=== PATIENT | female | born 1945 | race Caucasian/White ===

== ENCOUNTER → 2018-02-28 | Outpatient (CLI) | payer MEDICARE ==
--- NOTE | 2018-02-28 11:55 | MM ---
Reason for exam: additional evaluation requested from prior study. Last mammogram was performed 2 years ago. History: Patient is postmenopausal and is nulliparous. Physical Findings: Nurse did not find any significant physical abnormalities on exam. MG 3D Diag Mammo W/Cad FARIHA Bilateral CC and MLO view(s) were taken. Prior study comparison: February 23, 2016, left breast MG 3d work up w/cad LT. February 12, 2016, bilateral MG 3d screening mammo w/cad. December 12, 2014, bilateral MG screening mammo w CAD. There are scattered fibroglandular densities. Finding: There is an equal density (isodense), indistinct oval mass located 8 cm from the nipple in the lower inner quadrant, posterior position of the left breast. New finding since February 12, 2016 and February 23, 2016. These results were verbally communicated with the patient and result sheet given to the patient on 02/28/18. ASSESSMENT: Incomplete: need additional imaging evaluation, BI-RAD 0 RECOMMENDATION: Ultrasound of the left breast.
--- NOTE | 2018-02-28 11:56 | USB ---
Reason for exam: additional evaluation requested from abnormal screening. History: Patient is postmenopausal and is nulliparous. US Breast Limited LT Left limited breast ultrasound including focal area of concern, retroareolar and axilla demonstrates no cystic or solid lesion seen. These results were verbally communicated with the patient and result sheet given to the patient on 02/28/18. ASSESSMENT: Negative, BI-RAD 1 RECOMMENDATION: Follow-up diagnostic mammogram of the left breast in 6 months.
== END | disposition home or self-care (01) ==
LOC: RADMAMWWP 10:00
PROVIDERS: ATTEND Family Medicine
DX: R92.8 Other abnormal and inconclusive findings on diagnostic imaging of breast (principal)
CPT/HCPCS: 77066; 76642; G0279; 77062

== ENCOUNTER → 2021-01-08 | Outpatient (CLI) | payer MEDICARE ==
--- NOTE | 2021-01-08 16:18 | CT ---
EXAMINATION TYPE: CT abdomen wo con DATE OF EXAM: 01/08/2021 COMPARISON: None INDICATION: Mid abdominal pain and diarrhea x4 weeks. DLP: 211 mGycm, Automated exposure control for dose reduction was used. CONTRAST: 0 mL of Isovue 300. Study performed without Oral Contrast TECHNIQUE: Axial images were obtained from above the diaphragm to the pubic rami in the axial plane a t 5 mm thick sections. Reconstructed images are reviewed on the computer in the coronal plane. FINDINGS: Limited CT sections are obtained the lung bases. The lung bases are clear. There is a moderate-size d hiatal hernia present. CT ABDOMEN: Liver: Scattered small rounded hypodensities are present likely related to hepatic cysts. The largest in the posterior right lobe liver measures 2 cm and 10 Hounsfield units. Spleen: Normal Pancreas: Normal Adrenal glands: The adrenal glands are normal. Gallbladder: Surgically absent Kidneys: No masses are evident. No hydronephrosis is present. No cysts are present. No renal stone s are identified. Aorta: Normal Inferior vena cava: Normal. Loops of bowel as visualized are unremarkable. Study is without oral contrast causing some limitation of bowel evaluation. IMPRESSIONS: 1. Moderate size hiatal hernia. 2. Hepatic cysts. 3. No suspicious bowel abnormality.
== END | disposition home or self-care (01) ==
LOC: RADCTMAIN 15:36
PROVIDERS: ATTEND Family Medicine
DX: K44.9 Diaphragmatic hernia without obstruction or gangrene (principal); K76.89 Other specified diseases of liver
CPT/HCPCS: 74150

== ENCOUNTER 2021-01-12 22:35 | Emergency (ER) | payer MEDICARE ==
[2021-01-12] MEDS ORDERED: MORPHINE SULFATE 4 MG/ML SYRINGE IVP STA (23:17)
[2021-01-12] MEDS ORDERED: ONDANSETRON 4 MG/2 ML VIAL IVP STA (23:17)
[2021-01-13] MEDS ORDERED: LIDOCAINE 2%-EPI 1:100,000 20 ML VIAL SQ STA (00:16)
[2021-01-13] MEDS ORDERED: LORazepam 2 MG/ML INJ IV STA (00:16)
--- NOTE | 2021-01-13 00:17 | XR ---
EXAMINATION TYPE: XR wrist complete LT DATE OF EXAM: 01/13/2021 COMPARISON: NONE HISTORY: Wrist deformity TECHNIQUE: 3 views FINDINGS: There is transverse fracture of the distal radial metaphysis. There is anterior mild angula tion at the fracture site. There is no significant displacement. There is no dislocation. There is no ndisplaced fracture ulnar styloid process. Carpal bones appear intact. IMPRESSION: Fractures of the distal radius and ulna. Anterior angulation at the radius fracture site.
[2021-01-13] MEDS ORDERED: ACET/COD 300 MG/30 MG STARTER PACK 6 TAB BTL PO STA (01:02)
--- NOTE | 2021-01-13 01:02 | ED ---
Upper Extremity HPI - General Source: patient Mode of arrival: ambulatory Limitations: no limitations <Denisse Enrique - Last Filed: 01/13/21 02:54> <Jayme Pruitt - Last Filed: 01/13/21 06:05> - General Chief Complaint: Extremity Injury, Upper Stated Complaint: Fall, arm injury Time Seen by Provider: 01/12/21 23:09 - History of Present Illness Initial Comments: 75 year-old female patient presents for evaluation of left wrist pain after fall on outstretched arm. Patient states she was kneeling on her bed to turn the fan down when she lost balance and fell forward. States that she injured her wrist. States that it appeared to be out of place. Denies any numbness or tingling to the hand. Denies previous injury to this wrist. Denies taking anything for pain. Denies hitting her head or losing consciousness. Denies any neck or back pain. Denies any other injuries. Denies use of anticoagulant or antiplatelet medications. (Denisse Enrique) - Related Data Allergies Allergy/AdvReac Type Severity Reaction Status Date / Time No Known Allergies Allergy Verified 01/12/21 22:57 Review of Systems ROS Other: All systems not noted in ROS Statement are negative. <Denisse Enrique - Last Filed: 01/13/21 02:54> ROS Other: All systems not noted in ROS Statement are negative. <Jayme Pruitt - Last Filed: 01/13/21 06:05> ROS Statement: Those systems with pertinent positive or pertinent negative responses have been documented in the HPI. Past Medical History Past Medical History: Asthma History of Any Multi-Drug Resistant Organisms: None Reported Past Surgical History: Hernia Repair, Hysterectomy Past Psychological History: Anxiety, Depression Smoking Status: Never smoker Past Alcohol Use History: None Reported Past Drug Use History: None Reported <Denisse Enrique - Last Filed: 01/13/21 02:54> General Exam Limitations: no limitations General appearance: alert, in no apparent distress, other (This is a well- developed, well-nourished elderly female patient in no acute distress. Vital signs upon presentation are temperature 98.4F, pulse 85, respirations 17, blood pressure 129/83, pulse ox 98% on room air.) Neck exam: Present: normal inspection, full ROM, other (Nontender, no step-off, no deformity to firm midline palpation of the posterior cervical spine. Full range of motion without pain or limitation.). Absent: tenderness, meningismus, lymphadenopathy Respiratory exam: Present: normal lung sounds bilaterally. Absent: respiratory distress, wheezes, rales, rhonchi, stridor Cardiovascular Exam: Present: regular rate, normal rhythm, normal heart sounds. Absent: systolic murmur, diastolic murmur, rubs, gallop, clicks Extremities exam: Present: tenderness (Distal radial and ulnar tenderness), normal capillary refill, other (There is obvious deformity to the left wrist. Skin to the hand is pink, warm, dry. Cap refill is less than 3 seconds. Radial pulse is 2+.). Absent: normal inspection, full ROM (Diminished range of motion to the left wrist), pedal edema, joint swelling, calf tenderness Neurological exam: Present: alert, oriented X3, CN II-XII intact Psychiatric exam: Present: normal affect, normal mood Skin exam: Present: warm, dry, intact, normal color. Absent: rash <Denisse Enrique - Last Filed: 01/13/21 02:54> Course <Jayme Pruitt - Last Filed: 01/13/21 06:05> Vital Signs 01/12/21 22:48 Temperature 98.4 F Pulse Rate 85 Respiratory 17 Rate Blood Pressure 129/83 O2 Sat by Pulse 98 Oximetry - Reevaluation(s) Reevaluation #1: 01/13/21 06:05 Medical record is reviewed (Jayme Pruitt) Reevaluation #2: 01/13/21 06:05 Patient is awake alert and feels well (Jayme Pruitt) Procedures - Orthopedic Fracture Reduction Fracture #1 Consent Obtained: verbal consent Side: left Fracture Reduction Location: radius, ulna Analgesia: hematoma block Technique: direct manipulation Post Reduction X-rays Demonstrate: acceptable reduction Post-Reduction Neuro Exam: intact Post-Reduction Vascular Exam: intact Splint Applied: Yes Patient Tolerated Procedure: well, no complications - Orthopedic Splinting/Casting Injury #1 Side: left Upper Extremity Injury Location: wrist Upper Extremity Immobilizer: volar splint, Anthony wrap, synthetic pre-padded splint <Denisse Enrique - Last Filed: 01/13/21 02:54> - Orthopedic Fracture Reduction Fracture #1 Additional Comments: Hematoma block and reduction performed by Dr. Pruitt. (Denisse Enrique) - Orthopedic Splinting/Casting Injury #1 Additional Comments: Splint applied by my attending Dr. Pruitt. (Denisse Enrique) Medical Decision Making <Denisse Enrique - Last Filed: 01/13/21 02:54> <Jayme Pruitt - Last Filed: 01/13/21 06:05> - Medical Decision Making 75 year-old female patient presents with deformity of the left wrist after a fall. Physical exam shows soft tissue swelling and deformity of the left wrist. XRay showed distal radius and ulna fracture with displacement of the radius. IV was started and patient was given IV pain medication. My attending Dr. Pruitt was in to perform hematoma block and reduction of the fracture. He applied volar splint. Repeat xray does show acceptable reduction of the fracture. Patient is quite drowsy after the procedure, we will monitor in the emergency department until she is more alert. She will be discharged to follow up with the career specialist as soon as possible. Return parameters discussed in detail. She verbalizes understanding. (Denisse Enrique) 75 female DF for evaluation of fall fall with left collies fracture, fractures reduced here in the ER by myself patient can be discharged home (Jayme Pruitt) Disposition Is patient prescribed a controlled substance at d/c from ED?: No Time of Disposition: 01:51 <Denisse Enrique - Last Filed: 01/13/21 02:54> <Jayme Pruitt - Last Filed: 01/13/21 06:05> Clinical Impression: Fracture of distal end of left radius and ulna Disposition: HOME SELF-CARE Condition: Good Instructions (If sedation given, give patient instructions): Wrist Fracture in Adults (ED), Splint Care (ED) Additional Instructions: Follow-up with career specialist for further evaluation as soon as possible. Call in the morning for an appointment, the number has been provided for you. Take medication as directed for pain control. Return to the emergency department for any new, worsening, or concerning symptoms. Referrals: Octavio Duarte MD [Primary Care Provider] - 1-2 days Bebeto Darden DO [Doctor of Osteopathic Medicine] - 1-2 days
--- NOTE | 2021-01-13 01:50 | XR ---
EXAMINATION TYPE: XR wrist limited LT DATE OF EXAM: 01/13/2021 COMPARISON: Yesterday HISTORY: Post reduction TECHNIQUE: 2 views FINDINGS: 2 views through the cast show the transverse fracture of the distal radius. There is nondis placed ulnar styloid process fracture. Distal radius fragment is 3 mm posteriorly displaced. There is fairly normal alignment. IMPRESSION: Satisfactory reduction of the radius fracture with improvement in the angulation compared to initial exam.
[2021-01-13 06:30] VITALS: RESP 18
[2021-01-13 06:56] VITALS: BP 132/74; PULSE 78; TEMP 98.2
== END 2021-01-13 06:53 | disposition home or self-care (01) ==
LOC: EC 22:35
DX: S52.592A Other fractures of lower end of left radius, initial encounter for closed fracture (principal); S52.692A Other fracture of lower end of left ulna, initial encounter for closed fracture; J45.909 Unspecified asthma, uncomplicated; W06.XXXA Fall from bed, initial encounter
CPT/HCPCS: 73100; 73110; 25605; 96374; 96375 ×2; 99284; J2060; J2270; J2405

== ENCOUNTER → 2021-04-23 | Outpatient (CLI) | payer MEDICARE ==
--- NOTE | 2021-04-23 11:48 | BD ---
EXAMINATION TYPE: Axial Bone Density DATE OF EXAM: 04/23/2021 COMPARISON: 11.18.2009 CLINICAL HISTORY: 76 YR OLD FEMALE.....ICD-10 CODE: S52.532D COLLIES FX LT RADIUS Height: 60.2 Weight: 125 FRAX RISK QUESTIONS: Glucocorticoids (More than 3mos): YES (Ex: prednisone, prednisolone, methylprednisolone, dexamethasone, and hydrocortisone). History of Fracture in Adulthood: YES Secondary Osteoporosis: YES 3. Menopause before 45: YES RISK FACTORS HISTORY OF: History of Wrist Fracture: LT WRIST, DECEMBER 2020 Postmenopausal woman: YES, MID 40s Take estrogen and/or progesterone medications: YES, FOR ABOUT 4 YRS, NONE NOW Lost more than 2 inches in height since high school: YES Frequent falls: ELDERLY Hyperparathyroidism: NO Adrenal Insufficiency: NO MEDICATIONS: Prednisone or other steroids: BERIO, FOR ASTHMA How Lon-6 YRS Additional Medications: CELEXA, ZOLOFT, REFLUX MEDS, VIT D3 AND CALCIUM Additional History: ARTHRITIS, REFLUX, DEPRESSION, EXAM MEASUREMENTS: Bone mineral densitometry was performed using the [employer] System. Bone mineral density as measured about the Lumbar spine is: ----- L1-L4(G/cm2): 1.227 T Score Values are as follows: ----- L1: -0.6 ----- L2: -0.1 ----- L3: 0.3 ----- L4: 1.4 ----- L1-L4: 0.4 Bone mineral density has: Increased 4.5% since study of: 11.18.2009 Bone mineral density about the R hip (g/cm2): 0.674 Bone mineral density about the L hip (g/cm2): 0.679 T Score values are as follows: -----R Neck: -3.0 -----L Neck: -3.0 -----R Total: -2.7 -----L Total: -2.6 Bone mineral density has: Decreased -10.7% since study of: 11.18.2009 FRAX%s: THERE IS A 46.2% CHANCE FOR A MAJOR OSTEOPOROTIC FX AND A 21.7% FOR HIP......PROBABILITY F OR FX IN 10 YRS TIME IMPRESSION: Osteoporosis lumbar spine NOTE: T-SCORE=SD OF THE YOUNG ADULT MEAN.
== END | disposition home or self-care (01) ==
LOC: RADBDWWP 10:24
PROVIDERS: ATTEND Orthopaedic Surgery
DX: M81.0 Age-related osteoporosis without current pathological fracture (principal); Z78.0 Asymptomatic menopausal state
CPT/HCPCS: 77080

== ENCOUNTER → 2023-06-14 | Outpatient (CLI) | payer MEDICARE ==
--- NOTE | 2023-06-14 17:43 | BD ---
EXAMINATION TYPE: Axial Bone Density DATE OF EXAM: 06/14/2023 CLINICAL HISTORY: 78 years old Female. ICD-10 CODE: M81.0 AGE-RELATED OSTEOPOROSIS W/O CURRENT PATHO LO Height: 61 Weight: 112.6 FRAX RISK QUESTIONS: Alcohol (3 or more units per day): no Family History (Parent hip fracture): no Glucocorticoids (More than 3mos): yes (Ex: prednisone, prednisolone, methylprednisolone, dexamethasone, and hydrocortisone). History of Fracture in Adulthood: yes Secondary Osteoporosis: 1. Type 1 Diabetes: no 2. Hyperthyroidism: no 3. Menopause before 45: no 4. Malnutrition: no 5. Chronic liver disease: no Rheumatoid Arthritis: no Current Tobacco Use: no RISK FACTORS HISTORY OF: History of Wrist Fracture: left wrist When: 2 years ago Surgery to Spine/Hip(right/left)/Wrist (right/left): no Additional History: EXAM MEASUREMENTS: Bone mineral densitometry was performed using the [employer] System. Bone mineral density as measured about the Lumbar spine is: ----- L1-L4(G/cm2): 1.215 T Score Values are as follows: ----- L1: -0.8 ----- L2: 0.1 ----- L3: 0.3 ----- L4: 1.0 ----- L1-L4: 0.3 Z Score Values are as follows: ----- L1: 1.5 ----- L2: 2.4 ----- L3: 2.6 ----- L4: 3.3 ----- L1-L4: 2.6 Bone mineral density has: decreased -1.0 % since study of: 04.23.2021 Bone mineral density about the R hip (g/cm2): 0.652 Bone mineral density about the L hip (g/cm2): 0.666 T Score values are as follows: -----R Neck: -3.0 -----L Neck: -3.1 -----R Total: -2.8 -----L Total: -2.7 Z Score values are as follows: -----R Neck: -0.5 -----L Neck: -0.7 -----R Total: -0.5 -----L Total: -0.4 Bone mineral density has: decreased -2.7 % since study of: 04.23.2021 FRAX%s: The graph provided illustrates a 43.6% chance for a major osteoporotic fx and a 21.4% chance for the hips probability for fx in 10 years time. IMPRESSION: Osteoporosis (T Score less than -2.5). There is increased fracture risk and therapy is usually indicated based on age. Re-Screen 1-2 years. NOTE: T-SCORE=SD OF THE YOUNG ADULT MEAN.
== END | disposition home or self-care (01) ==
LOC: RADBDWWP 14:50
PROVIDERS: ATTEND Family Medicine
DX: M81.0 Age-related osteoporosis without current pathological fracture (principal)
CPT/HCPCS: 77080

== ENCOUNTER → 2023-07-12 | Outpatient (CLI) | payer MEDICARE ==
--- NOTE | 2023-07-13 08:13 | XR ---
EXAMINATION TYPE: XR chest 2V DATE OF EXAM: 07/12/2023 COMPARISON: 07/12/2019 TECHNIQUE: PA and lateral views submitted. HISTORY: Chest pain FINDINGS: The lungs are clear and there is no pneumothorax, pleural effusion, or focal pneumonia. Heart size normal and no overt failure. Osseous structures demonstrate hypertrophic and degenerative changes of the spine. Hyperinflation compatible COPD. Wedge deformity lower thoracic spine compatible with previ ous fracture. Ectasia of the aorta. Pleural-based density along the left lateral chest wall. IMPRESSION: 1. No acute process. Correlate for COPD. 2. Pleural-based density along the left lateral chest wall recommend CT scan.
== END | disposition home or self-care (01) ==
LOC: RADXRMAIN 17:19
PROVIDERS: ATTEND Family Medicine
DX: J94.8 Other specified pleural conditions (principal); R07.9 Chest pain, unspecified
CPT/HCPCS: 71046

== ENCOUNTER → 2023-07-26 | Outpatient (CLI) | payer MEDICARE ==
--- NOTE | 2023-07-26 10:28 | CT ---
EXAMINATION TYPE: CT chest wo con CT DLP: 273 mGycm, Automated exposure control for dose reduction was used. DATE OF EXAM: 07/26/2023 10:14 AM COMPARISON: . Chest radiograph from 07/12/2023 CLINICAL INDICATION:Female, 78 years old with history of R91.8 previous abnormal exam; PHH, Previous abnormal exam TECHNIQUE: Multiple axial images were obtained through the chest without IV contrast. Lack of IV or o ral contrast limits evaluation of solid and hollow organ viscera. . Coronal and sagittal reformats re viewed. FINDINGS: LUNGS/ PLEURA: No pleural effusion or pneumothorax. No focal consolidation. Linear scarring identifie d within the left lung base likely corresponds to chest radiograph findings. Left lower lobe 2 mm pul monary nodule (series 4, image 33). 5 mm nodule along the right minor fissure which may represent int rafissural lymph node (series 4, image 35). AIRWAY: Patent and unremarkable.. HEART: Size within normal limits. . MEDIASTINUM: No gross evidence of adenopathy. VASCULATURE: Ascending aortic aneurysm measuring up to 4.0 cm. Aortic root measures up to 3.0 cm. Ab errant right subclavian artery. MUSCULOSKELETAL: No acute osseous abnormalities SOFT TISSUES/LYMPH NODES: Unremarkable. LOWER NECK: No significant findings. UPPER ABDOMEN: Surgical changes of the stomach at the GE junction but similar to prior. Postcholecyst ectomy changes. Scattered hepatic cysts with largest seen measuring 2.4 cm. IMPRESSION: 1. No acute thoracic process. 2. Left lower lobe 2 mm pulmonary nodule with a 5 mm nodule along the right major fissure which may r epresent an intrafissural lymph node. According to Fleischner criteria, a low risk patient no follow- up is required, in a high-risk patient, consider CT in 12 months. 3. Ascending aortic aneurysm measuring up to 4.0 cm. 4. Aberrant right subclavian artery.
== END | disposition home or self-care (01) ==
LOC: RADCTMAIN 09:49
PROVIDERS: ATTEND Family Medicine
DX: I71.21 Aneurysm of the ascending aorta, without rupture (principal); Q27.8 Other specified congenital malformations of peripheral vascular system; R91.8 Other nonspecific abnormal finding of lung field; R91.1 Solitary pulmonary nodule
CPT/HCPCS: 71250

== ENCOUNTER 2023-09-10 18:11 | Emergency (ER) | payer MEDICARE ==
[2023-09-10 18:26] VITALS: TEMP 98
[2023-09-10] MEDS: MORPHINE SULFATE 4 MG/ML SYRINGE IVP STA (18:28)
--- NOTE | 2023-09-10 18:31 | ED ---
Fall HPI - General Chief Complaint: Fall Stated Complaint: Fall, arm injury Time Seen by Provider: 09/10/23 18:25 Source: patient, EMS, RN notes reviewed Mode of arrival: EMS Limitations: no limitations - History of Present Illness Initial Comments: 78-year-old female presents emergency department via EMS due to fall. Patient states that she was at home on a stepstool and she fell onto her left side and arm which prompted her to call EMS. At time of fall patient denies any dizziness, lightheadedness, palpitations, chest pain. She denies hitting her head or loss of consciousness after fall. Denies any numbness or tingling to her left arm or extremity, and states she is still able to move her fingers, with most of her pain being in her shoulder and humerus. She denies history of heart attack or stroke, she is not on any blood thinners. - Related Data Allergies Allergy/AdvReac Type Severity Reaction Status Date / Time No Known Allergies Allergy Verified 09/10/23 18:23 Review of Systems ROS Statement: Those systems with pertinent positive or pertinent negative responses have been documented in the HPI. ROS Other: All systems not noted in ROS Statement are negative. Past Medical History Past Medical History: Asthma History of Any Multi-Drug Resistant Organisms: None Reported Past Surgical History: Hernia Repair, Hysterectomy Past Psychological History: Anxiety, Depression Smoking Status: Never smoker Past Alcohol Use History: None Reported Past Drug Use History: None Reported General Exam Limitations: no limitations General appearance: anxious, in distress Head exam: Present: atraumatic, normocephalic, normal inspection Eye exam: Present: normal appearance, PERRL, EOMI. Absent: scleral icterus, conjunctival injection, periorbital swelling ENT exam: Present: normal exam, mucous membranes moist Neck exam: Present: normal inspection. Absent: tenderness, meningismus, lymphadenopathy Respiratory exam: Present: normal lung sounds bilaterally. Absent: respiratory distress, wheezes, rales, rhonchi, stridor Cardiovascular Exam: Present: regular rate, normal rhythm, normal heart sounds. Absent: systolic murmur, diastolic murmur, rubs, gallop, clicks GI/Abdominal exam: Present: soft, normal bowel sounds. Absent: distended, tenderness, guarding, rebound, rigid Left Shoulder Exam: Present: tenderness (diffuse). Absent: full ROM (patient unable to abduct or adduct shoulder), swelling, abrasion, laceration Upper Arm exam: Present: tenderness (humeral tenderness). Absent: full ROM (unable to lift left arm), abrasion, laceration Elbow exam: Present: normal inspection. Absent: full ROM (limited flexion and extension) Neuro motor exam: Present: wrist extension intact, thumb IP flexion intact Vascular: Present: normal capillary refill. Absent: vascular compromise, Pallo Back exam: Present: normal inspection Neurological exam: Present: alert, oriented X3, CN II-XII intact Psychiatric exam: Present: normal affect, normal mood Skin exam: Present: warm, dry, intact, normal color. Absent: rash Course Vital Signs 09/10/23 18:13 Temperature 98 F Pulse Rate 78 Respiratory 18 Rate Blood Pressure 159/93 O2 Sat by Pulse 98 Oximetry Procedures - Orthopedic Splinting/Casting Injury #1 Side: left Upper Extremity Injury Location: shoulder Upper Extremity Immobilizer: sling/shoulder immobilizer Medical Decision Making - Medical Decision Making Was pt. sent in by a medical professional or institution (, PA, CHANGE MANAGEMENT MANAGER, urgent care, hospital, or usp...) When possible be specific @ -No Did you speak to anyone other than the patient for history (EMS, parent, family, police, friend...)? What history was obtained from this source @ -No Did you review nursing and triage notes (agree or disagree)? Why? @ -I reviewed and agree with nursing and triage notes Were old charts reviewed (outside hosp., previous admission, EMS record, old EKG, old radiological studies, urgent care reports/EKG's, usp records)? Report findings @ -No old charts were reviewed Differential Diagnosis (chest pain, altered mental status, abdominal pain women, abdominal pain men, vaginal bleeding, weakness, fever, dyspnea, syncope, headache, dizziness, GI bleed, back pain, seizure, CVA, palpatations, mental health, musculoskeletal)? @ -Differential Musculoskeletal Muscular strain, contusion, ligament sprain, fracture, arthritis, septic arthritis, bursitis, cellulitis, muscle spasm, nerve compression, DVT, arterial occlusion, herpes zoster, electrolyte abnormality, tumor.... This is not meant to be in all inclusive list EKG interpreted by me (3pts min.). @ -As above X-rays interpreted by me (1pt min.). @ -xrays of left arm no acute fracture of the left proximal humerus with mild di splacement posterior angulation, x-ray no acute cardiopulmonary process. CT interpreted by me (1pt min.). @ -None done U/S interpreted by me (1pt. min.). @ -None done What testing was considered but not performed or refused? (CT, X-rays, U/S, labs)? Why? @ -None What meds were considered but not given or refused? Why? @ -None Did you discuss the management of the patient with other professionals (professionals i.e. , PA, CHANGE MANAGEMENT MANAGER, lab, RT, psych nurse, social psychologist, septic tank servicer, teacher, procurement officer, correctional case manager)? Give summary @ -No Was smoking cessation discussed for >3mins.? @ -No Was critical care preformed (if so, how long)? @ -No Were there social determinants of health that impacted care today? How? (Homelessness, low income, unemployed, alcoholism, drug addiction, transport ation, low edu. Level, literacy, decrease access to med. care, nursing home, rehab)? @ -No Was there de-escalation of care discussed even if they declined (Discuss DNR or withdrawal of care, Hospice)? DNR status @ -No What co-morbidities impacted this encounter? (DM, HTN, Smoking, COPD, CAD, Cancer, CVA, ARF, Chemo, Hep., AIDS, mental health diagnosis, sleep apnea, morbid obesity)? @ -None Was patient admitted / discharged? Hospital course, mention meds given and route, prescriptions, significant lab abnormalities, going to OR and other pertinent info. @ -78-year-old female presents emergency department chief complaint of fall. Given IV pain medication upon arrival. xrays of left arm no acute fracture of the left proximal humerus with mild displacement posterior angulation, x-ray no acute cardiopulmonary process. Stable for discharge home. Follow-up with orthopedics on Tuesday for further evaluation and treatment. Patient placed in sling and given pain medication to take home. Undiagnosed new problem with uncertain prognosis? @ -No Drug Therapy requiring intensive monitoring for toxicity (Heparin, Nitro, Insulin, Cardizem)? @ -No Were any procedures done? @ -No Diagnosis/symptom? @ -Humeral fracture Acute, or Chronic, or Acute on Chronic? @ -acute Uncomplicated (without systemic symptoms) or Complicated (systemic symptoms)? @ -Uncomplicated Side effects of treatment? @ -No Exacerbation, Progression, or Severe Exacerbation? @ -No Poses a threat to life or bodily function? How? (Chest pain, [place], [place], pneumonia, PE, COPD, DKA, ARF, appy, cholecystitis, CVA, Diverticulitis, Homicidal, Suicidal, threat to staff... and all critical care pts) @ -No Disposition Clinical Impression: Fall, Fracture of humerus Narrative: Please return to the Emergency Department if symptoms worsen or any other concerns. Patient given starter pack of pain medication for at home. Patient instructed to call orthopedic office on Tuesday for further evaluation and treatment. Disposition: HOME SELF-CARE Condition: Good Is patient prescribed a controlled substance at d/c from ED?: No Referrals: Octavio Duarte MD [Primary Care Provider] - 1-2 days Carmen Hall DO [Doctor of Osteopathic Medicine] - 1-2 days Time of Disposition: 19:47
--- NOTE | 2023-09-10 19:20 | XR ---
EXAMINATION TYPE: XR chest 1V DATE OF EXAM: 09/10/2023 6:57 PM CLINICAL INDICATION:Female, 78 years old with history of fall, pain; [facility] COMPARISON: Chest radiographs from 07/12/2023 TECHNIQUE: XR chest 1V Frontal view of the chest. FINDINGS: Lungs/Pleura: There is no evidence of pleural effusion, focal consolidation, or pneumothorax. Pulmonary vascularity: Unremarkable. Heart/mediastinum: Cardiomediastinal silhouette is unremarkable. Musculoskeletal: No acute osseous pathology. Other findings: None IMPRESSION: 1. No acute cardiopulmonary disease/process. 2. Acute left proximal humerus fracture as described on same day dedicated radiographs.
--- NOTE | 2023-09-10 19:20 | XR ---
EXAMINATION TYPE: XR forearm LT, XR humerus LT, XR shoulder complete LT DATE OF EXAM: 09/10/2023 6:57 PM CLINICAL INDICATION:Female, 78 years old with history of fall, pain; [facility] COMPARISON: Chest radiograph same day. TECHNIQUE: XR forearm LT, XR humerus LT, XR shoulder complete LT; forearm was examined in AP and late ral projections. The left humerus was evaluated in frontal and lateral views. The left shoulder was e valuated in frontal lateral and scapular Y. FINDINGS/IMPRESSION: 1. Acute fracture of the left proximal humerus with mild displacement and posterior angulation. 2. Remote injury to the distal radius likely sequela prior fracture seen on 01/13/2021 no new fractur es identified. There is degeneration changes and deformity to the radius.
[2023-09-10] MEDS: MORPHINE SULFATE 2 MG/ML SYRINGE IVP ONE (20:01)
[2023-09-10] MEDS: ACET/COD 300 MG/30 MG STARTER PACK 6 TAB BTL PO STA (20:01)
[2023-09-10 20:32] VITALS: BP 150/85; PULSE 81; RESP 16
== END 2023-09-10 20:08 | disposition home or self-care (01) ==
LOC: EC 18:11
DX: S42.202A Unspecified fracture of upper end of left humerus, initial encounter for closed fracture (principal); J45.909 Unspecified asthma, uncomplicated; Z86.59 Personal history of other mental and behavioral disorders; W18.30XA Fall on same level, unspecified, initial encounter
CPT/HCPCS: 73030; 73060; 73090; 71045; 99284; 96374; 96376; J2270 ×2

== ENCOUNTER 2023-09-15 15:49 | Observation (INO) | payer MEDICARE ==
[2023-09-15 17:05] LABS: Basophils % (A) 0 %; Eosinophils % (A) 0 %; HCT 42.8 % (34.0-46.0); HGB 13.7 gm/dL (11.4-16.0); Lymphocytes % (A) 10 %; MCHC 32.1 g/dL (31.0-37.0); MCV 93.4 fL (80.0-100.0); Mean Platelet Volume 7.8; Monocytes # (A) 0.5 k/uL (0-1.0); Monocytes % (A) 5 %; Neutrophils # (A) 8.2 k/uL (1.3-7.7); Neutrophils % (A) 83 %; Platelet Count 362 k/uL (150-450); RBC 4.58 m/uL (3.80-5.40); RDW 13.1 % (11.5-15.5); WBC 9.8 k/uL (3.8-10.6)
[2023-09-15 17:13] LABS: INR 0.9 (<1.2); Partial Thromboplastin Time 23.7 sec (22.0-30.0); Prothrombin Time 9.8 sec (10.0-12.5)
[2023-09-15 17:14] LABS: ALT 26 U/L (4-34); African American GFR (CKD) >90 (>60 ml/min/1.73 sqM); Anion Gap 3 mmol/L; Blood Urea Nitrogen 12 mg/dL (7-17); Calcium 9.2 mg/dL (8.4-10.2); Carbon Dioxide 30 mmol/L (22-30); Chloride 105 mmol/L (98-107); Creatine Kinase 54 U/L (30-135); Glucose 102 mg/dL (74-99); Non-African American GFR(CKD) 87 (>60 ml/min/1.73 sqM); Sodium 138 mmol/L (137-145)
[2023-09-15 17:15] LABS: AST 45 U/L (14-36); Albumin 3.7 g/dL (3.5-5.0); Alkaline Phosphatase 91 U/L (38-126); Potassium 4.7 mmol/L (3.5-5.1); Total Protein 6.3 g/dL (6.3-8.2)
[2023-09-15] MEDS: KETOROLAC 15 MG/ML 1 ML VIAL IVP STA (17:21)
--- NOTE | 2023-09-15 17:53 | ED ---
General Adult HPI - General Chief complaint: Neuro Symptoms/Deficit Stated complaint: Confusion Time Seen by Provider: 09/15/23 16:00 Source: patient, EMS Mode of arrival: EMS Limitations: no limitations - History of Present Illness Initial comments: 78-year-old female with past medical history of asthma who presents to the emergency department from her primary care office. It was reported that the patient went into the office today to see her primary care doctor for her recent falls. She did have a fall on the where she fell and broke her left arm. She was given a prescription for [place] to take for pain control. States that she was being seen today for these falls and does have an appointment planned for orthopedics for next week. She has been wearing her sling. Patient remembered driving to the primary care office however does not remember her visit with the primary care doctor. She remembers someone in the office sitting with her saying that they were going to have EMS take her to the hospital. Dr. Duarte states that he was in the room 3 times attempting to explain to the patient the plan of action and she was completely confused throughout the visit. At this time the patient does not remember seeing Dr. Duarte. There was no report of any seizure-like activity. No lateralizing weakness. Patient states she did not take any of the pain medications today as she has run out. No history of stroke. No recent head injury. No other alleviating, precipitating or modifying factors - Related Data Home Medications Medication Instructions Recorded Confirmed Alendronate Sodium [Fosamax] 70 mg PO SA 09/15/23 09/15/23 Citalopram Hydrobromide [CeleXA] 40 mg PO DAILY 09/15/23 09/15/23 Clobetasol Propionate [Clobex 1 applic TOPICAL BID PRN 09/15/23 09/15/23 0.05% Soln] Fluticasone/Vilanterol [Breo 1 puff INHALATION RT-DAILY 09/15/23 09/15/23 Ellipta 100-25 Mcg Inhalr] HYDROcodone/APAP 5-325MG [[place] 1 tab PO QID PRN 09/15/23 09/15/23 5-325] Ketoconazole 2% Shampoo [Nizoral] 1 applic TOPICAL Q3D PRN 09/15/23 09/15/23 Lansoprazole [Prevacid] 30 mg PO BID 09/15/23 09/15/23 Montelukast [Singulair] 10 mg PO HS 09/15/23 09/15/23 Primidone [Mysoline] 50 mg PO DAILY 09/15/23 09/15/23 Primidone [Mysoline] 100 mg PO HS 09/15/23 09/15/23 buPROPion XL [Wellbutrin XL] 150 mg PO DAILY 09/15/23 09/15/23 Allergies Allergy/AdvReac Type Severity Reaction Status Date / Time No Known Allergies Allergy Verified 09/15/23 17:55 Review of Systems ROS Statement: Those systems with pertinent positive or pertinent negative responses have been documented in the HPI. ROS Other: All systems not noted in ROS Statement are negative. Past Medical History Past Medical History: Asthma History of Any Multi-Drug Resistant Organisms: None Reported Past Surgical History: Hernia Repair, Hysterectomy Past Psychological History: Anxiety, Depression Smoking Status: Never smoker Past Alcohol Use History: None Reported Past Drug Use History: None Reported General Exam Limitations: no limitations General appearance: alert, in no apparent distress Head exam: Present: atraumatic, normocephalic, normal inspection Eye exam: Present: normal appearance, PERRL, EOMI. Absent: scleral icterus, conjunctival injection, periorbital swelling ENT exam: Present: normal exam, mucous membranes moist Neck exam: Present: normal inspection. Absent: tenderness, meningismus, lymphadenopathy Respiratory exam: Present: normal lung sounds bilaterally. Absent: respiratory distress, wheezes, rales, rhonchi, stridor Cardiovascular Exam: Present: regular rate, normal rhythm, normal heart sounds. Absent: systolic murmur, diastolic murmur, rubs, gallop, clicks GI/Abdominal exam: Present: soft, normal bowel sounds. Absent: distended, tenderness, guarding, rebound, rigid Extremities exam: Present: normal inspection, full ROM, normal capillary refill. Absent: tenderness, pedal edema, joint swelling, calf tenderness Back exam: Present: normal inspection Neurological exam: Present: alert, oriented X3, CN II-XII intact Psychiatric exam: Present: normal affect, normal mood Skin exam: Present: warm, dry, intact, normal color. Absent: rash Course Vital Signs 09/15/23 09/15/23 09/15/23 15:55 17:16 18:48 Temperature 99.1 F 98.3 F Pulse Rate 85 87 81 Respiratory 20 14 14 Rate Blood Pressure 177/100 140/84 157/87 O2 Sat by Pulse 100 97 97 Oximetry 09/15/23 20:00 Temperature Pulse Rate 84 Respiratory 18 Rate Blood Pressure 153/91 O2 Sat by Pulse 99 Oximetry Medical Decision Making - Medical Decision Making Was pt. sent in by a medical professional or institution (, PA, VALVE STEAMER, urgent care, hospital, or assisted...) When possible be specific @ -Dr. Duarte Did you speak to anyone other than the patient for history (EMS, parent, family, police, friend...)? What history was obtained from this source @ -EMS and Dr. Duarte Did you review nursing and triage notes (agree or disagree)? Why? @ -I reviewed and agree with nursing and triage notes Were old charts reviewed (outside hosp., previous admission, EMS record, old EKG, old radiological studies, urgent care reports/EKG's, assisted records)? Report findings @ -No old charts were reviewed Differential Diagnosis (chest pain, altered mental status, abdominal pain women, abdominal pain men, vaginal bleeding, weakness, fever, dyspnea, syncope, headache, dizziness, GI bleed, back pain, seizure, CVA, palpatations, mental health, musculoskeletal)? @ -Differential Altered Mental Status: Hypoglycemia, DKA, hypercapnia, ETOH, overdose, CO poisoning, trauma, myxedema coma, HTN encephalopathy, infection, encephalitis, psychosis, intercranial hemorrhage, hepatic encephalopathy, meningitis, CVA, this is not meant to be an all-inclusive list EKG interpreted by me (3pts min.). @ -Yes and demonstrates sinus rhythm with a rate of 85. NE interval 180. QRS 875. QTc of 422. No acute ST segment elevations or depression X-rays interpreted by me (1pt min.). @ -None done CT interpreted by me (1pt min.). @ -Yes and demonstrates no acute process U/S interpreted by me (1pt. min.). @ -None done What testing was considered but not performed or refused? (CT, X-rays, U/S, labs)? Why? @ -None What meds were considered but not given or refused? Why? @ -None Did you discuss the management of the patient with other professionals (professionals i.e. , PA, VALVE STEAMER, lab, RT, psych nurse, social service manager, flavor tank tender, teacher, chief compliance officer, case making machine operator)? Give summary @ -Spoke with Dr. Duarte who will admit the patient Was smoking cessation discussed for >3mins.? @ -No Was critical care preformed (if so, how long)? @ -No Were there social determinants of health that impacted care today? How? (Homelessness, low income, unemployed, alcoholism, drug addiction, transportation, low edu. Level, literacy, decrease access to med. care, senior care, rehab)? @ -No Was there de-escalation of care discussed even if they declined (Discuss DNR or withdrawal of care, Hospice)? DNR status @ -No What co-morbidities impacted this encounter? (DM, HTN, Smoking, COPD, CAD, Cancer, CVA, ARF, Chemo, Hep., AIDS, mental health diagnosis, sleep apnea, morbid obesity)? @ -None Was patient admitted / discharged? Hospital course, mention meds given and route, prescriptions, significant lab abnormalities, going to OR and other pertinent info. @ -Upon arrival patient was placed into room 16. Thorough history and physical exam was performed. NIH is 0. Patient does have an episode of transient global encephalopathy. IV was established. Laboratory studies are conducted. Patient does go for CT of her head. I discussed results with the patient. I called and spoke with Dr. Duarte. Does recommend overnight observation with neurology consultation. I will attempted to control the patient's pain. She is requesting nonnarcotics. Toradol is ordered. Patient was agreeable to admission and is currently pending a bed on the floor Undiagnosed new problem with uncertain prognosis? @ -Yes Drug Therapy requiring intensive monitoring for toxicity (Heparin, Nitro, Insulin, Cardizem)? @ -No Were any procedures done? @ -No Diagnosis/symptom? @ -Acute transient encephalopathy Acute, or Chronic, or Acute on Chronic? @ -Acute Uncomplicated (without systemic symptoms) or Complicated (systemic symptoms)? @ -Complicated Side effects of treatment? @ -No Exacerbation, Progression, or Severe Exacerbation? @ -No Poses a threat to life or bodily function? How? (Chest pain, [place], [place], pneumonia, PE, COPD, DKA, ARF, appy, cholecystitis, CVA, Diverticulitis, Homicidal, Suicidal, threat to staff... and all critical care pts) @ -No - Lab Data Result diagrams: 09/15/23 16:44 09/15/23 16:44 Lab Results 09/15/23 09/15/23 09/15/23 Range/Units 16:44 16:44 16:44 WBC 9.8 (3.8-10.6) k/uL RBC 4.58 (3.80-5.40) m/uL Hgb 13.7 (11.4-16.0) gm/dL Hct 42.8 (34.0-46.0) % MCV 93.4 (80.0-100.0) fL MCH 30.0 (25.0-35.0) pg MCHC 32.1 (31.0-37.0) g/dL RDW 13.1 (11.5-15.5) % Plt Count 362 (150-450) k/uL MPV 7.8 Neutrophils % 83 % Lymphocytes % 10 % Monocytes % 5 % Eosinophils % 0 % Basophils % 0 % Neutrophils # 8.2 H (1.3-7.7) k/uL Lymphocytes # 1.0 (1.0-4.8) k/uL Monocytes # 0.5 (0-1.0) k/uL Eosinophils # 0.0 (0-0.7) k/uL Basophils # 0.0 (0-0.2) k/uL PT 9.8 L (10.0-12.5) sec INR 0.9 (<1.2) APTT 23.7 (22.0-30.0) sec Sodium 138 (137-145) mmol/L Potassium 4.7 (3.5-5.1) mmol/L Chloride 105 (98-107) mmol/L Carbon Dioxide 30 (22-30) mmol/L Anion Gap 3 mmol/L BUN 12 (7-17) mg/dL Creatinine 0.60 (0.52-1.04) mg/dL Est GFR (CKD-EPI)AfAm >90 (>60 ml/min/1.73 sqM) Est GFR (CKD-EPI)NonAf 87 (>60 ml/min/1.73 sqM) Glucose 102 H (74-99) mg/dL Calcium 9.2 (8.4-10.2) mg/dL Total Bilirubin 1.0 (0.2-1.3) mg/dL AST 45 H (14-36) U/L ALT 26 (4-34) U/L Alkaline Phosphatase 91 (38-126) U/L Creatine Kinase 54 (30-135) U/L Troponin I (0.000-0.034) ng/mL Total Protein 6.3 (6.3-8.2) g/dL Albumin 3.7 (3.5-5.0) g/dL 09/15/23 Range/Units 16:44 WBC (3.8-10.6) k/uL RBC (3.80-5.40) m/uL Hgb (11.4-16.0) gm/dL Hct (34.0-46.0) % MCV (80.0-100.0) fL MCH (25.0-35.0) pg MCHC (31.0-37.0) g/dL RDW (11.5-15.5) % Plt Count (150-450) k/uL MPV Neutrophils % % Lymphocytes % % Monocytes % % Eosinophils % % Basophils % % Neutrophils # (1.3-7.7) k/uL Lymphocytes # (1.0-4.8) k/uL Monocytes # (0-1.0) k/uL Eosinophils # (0-0.7) k/uL Basophils # (0-0.2) k/uL PT (10.0-12.5) sec INR (<1.2) APTT (22.0-30.0) sec Sodium (137-145) mmol/L Potassium (3.5-5.1) mmol/L Chloride (98-107) mmol/L Carbon Dioxide (22-30) mmol/L Anion Gap mmol/L BUN (7-17) mg/dL Creatinine (0.52-1.04) mg/dL Est GFR (CKD-EPI)AfAm (>60 ml/min/1.73 sqM) Est GFR (CKD-EPI)NonAf (>60 ml/min/1.73 sqM) Glucose (74-99) mg/dL Calcium (8.4-10.2) mg/dL Total Bilirubin (0.2-1.3) mg/dL AST (14-36) U/L ALT (4-34) U/L Alkaline Phosphatase (38-126) U/L Creatine Kinase (30-135) U/L Troponin I <0.012 (0.000-0.034) ng/mL Total Protein (6.3-8.2) g/dL Albumin (3.5-5.0) g/dL Disposition Clinical Impression: Acute encephalopathy, TIA (transient ischemic attack) Disposition: ADMITTED IP TO THIS [facility] Condition: Stable Is patient prescribed a controlled substance at d/c from ED?: No Time of Disposition: 19:11 Decision to Admit Reason: Admit from EC Decision Date: 09/15/23 Decision Time: 19:11
--- NOTE | 2023-09-15 18:21 | XR ---
EXAMINATION: XR chest 1V DATE AND TIME: 09/15/2023 6:13 PM CLINICAL INDICATION: [facility]; altered mental status TECHNIQUE: Departmental protocol COMPARISON: 09/10/2023 FINDINGS: The lungs are clear. The pleural spaces are negative. The cardiac silhouette is not enlarged. Aortic tortuosity is prominent, unchanged. The skeletal structures and soft tissues are negative for acute findings. IMPRESSION: No acute radiographic process.
--- NOTE | 2023-09-15 18:27 | CT ---
EXAMINATION TYPE: CT brain wo con DATE OF EXAM: 09/15/2023 HISTORY: Neuro deficit, acute, stroke suspected CT DLP: Combined DLP of 1427.2 mGycm. Automated Exposure Control for Dose Reduction was Utilized. TECHNIQUE: CT scan of the head is performed without contrast. COMPARISON: CT 12/28/2011 FINDINGS: There is no skull fracture or acute intracranial hemorrhage. No mass or mass effect. No definite acut e attenuation defect. Extra-axial compartment unremarkable. The globes are intact. The paranasal sinuses and middle ear cavities and mastoid sinus air cells are clear. There are prominent osteophytic spurs at the bilateral temporal mandibular joints. IMPRESSION: No acute process.
--- NOTE | 2023-09-15 18:45 | CT ---
EXAMINATION TYPE: CT angio head neck, with contrast and with 3-D Reconstruction rendering at an [facility] [employer] workstation DATE OF EXAM: 09/15/2023 HISTORY: Neuro deficit, acute, stroke suspected COMPARISON: CT brain without contrast 09/15/2023 at 6:[address] DLP: Combined DLP of 1427.2 mGycm. Automated Exposure Control for Dose Reduction was Utilized. TECHNIQUE: CTA scan of the head and neck is performed with IV Contrast, patient injected with 65 cc mL of Isovue 370, axial images are obtained, coronal and sagittal reformatted images are reviewed. 3D reconstructed images are created on an independent workstation and reviewed. FINDINGS: CTA Neck: The bilateral carotid arterial systems are widely patent with normal appearance, other than tortuosity. Similarly, the bilateral vertebral arterial systems are widely patent with normal appear ance. There are no incidental nonvascular findings. CTA Head: The anterior and posterior arterial systems are widely patent with normal appearance. No in cidental nonvascular findings. IMPRESSION: No significant abnormality. NASCET criteria was used in interpretation of this exam?
[2023-09-15] MEDS: ATORVASTATIN 40 MG TAB PO SCH (19:41)
[2023-09-15] MEDS: ASPIRIN 325 MG TAB PO STA (19:41)
[2023-09-15] MEDS ORDERED: CLOBETASOL PROP 0.05% CR 15GM TOPICAL PRN (23:16)
[2023-09-15] MEDS: PRIMIDONE 50 MG TAB PO SCH (23:38)
[2023-09-15] MEDS: MONTELUKAST 10 MG TAB PO SCH (23:38)
[2023-09-15] MEDS: KETOROLAC 15 MG/ML 1 ML VIAL IVP PRN (23:39)
[2023-09-16] MEDS: SYMBICORT 80-4.5 MCG INHALER INHALATION SCH (08:27)
[2023-09-16] MEDS: PRIMIDONE 50 MG TAB PO SCH (08:46)
[2023-09-16] MEDS: PANTOPRAZOLE 40 MG TABLET PO SCH (08:46)
[2023-09-16] MEDS: buPROPion XL 150 MG TAB.ER.24H PO SCH (08:46)
[2023-09-16] MEDS: CITALOPRAM HYDROBROMIDE 20 MG TAB PO SCH (08:46)
[2023-09-16 10:11] LABS: Chol/HDL Ratio 2.51 Ratio; LDL Cholesterol,Calculated 101.2 mg/dL (0.0-131.0)
[2023-09-16] MEDS: HYDROcodone/APAP 5-325MG 1 EACH TAB PO PRN (11:45)
--- NOTE | 2023-09-16 14:09 | P.HPIM ---
History of Present Illness H&P Date: 09/16/23 This is a pleasant 78-year-old female patient of Dr. Pearson who has a medical history of asthma, anxiety/depression. Patient does live at home by herself she is sustained a fall after tripping off of a stepstool on the and fell onto her left side patient did call EMS and was brought into the hospital for evaluation. She denies any loss of consciousness and did not hit her head at that time. Patient at that time was found to have an acute fracture of the left proximal humerus with mild displacement and posterior angulation. A remote injury to the distal radius likely sequela of prior fracture on January 13, 2021 with no new fractures identified. There is degenerative changes and deformity to the radius. Patient was placed in a soft sling and recommended to follow-up with orthopedics on discharge. Patient was sent home from the ER. Patient states that she was having difficulty getting an appointment and she drove herself to Dr. Duarte's office on Tuesday due to worsening pain and difficulty taking care of herself at home. There is reports that patient was quite confused at the office that she forgot where she parked her car she did not remember seeing Dr. Duarte although he was in and out of her room at least 3-4 times at the office. She was felt to have altered mentation and EMS was called to transport the patient to the hospital. She is admitted to see orthopedics f or the left humerus fracture and also neurology consultation for the altered mentation. Patient is currently alert and oriented x 3 in the room. She reports that she would taking Tylenol with codeine for the few days after she initially came to the hospital but states that since then she has only been taking Aleve twice a day and is currently rating her pain for her left arm about an 8 out of 10. She is having difficulty performing ADLs. Denies any chest pain or shortness of breath no nausea vomiting or diarrhea she has no focal neurological deficits no dizziness or lightheadedness is not having speech difficulties at this time. She feels that her confusion has completely resolved. Patient had a brain CT done and as well as a CT angiography with no acute findings. A chest x-ray was normal. EKG shows normal sinus rhythm heart rate of [address] or T wave abnormalities. Blood work is essentially unremarkable. REVIEW OF SYSTEMS: CONSTITUTIONAL: No fever, no malaise, no fatigue. HEENT: No recent visual problems or hearing problems. Denied any sore throat. CARDIOVASCULAR: No chest pain, orthopnea, PND, no palpitations, no syncope. PULMONARY: No shortness of breath, no cough, no hemoptysis. GASTROINTESTINAL: No diarrhea, no nausea, no vomiting, no abdominal pain. NEUROLOGICAL: No headaches, no weakness, no numbness. HEMATOLOGICAL: Denies any bleeding or petechiae. GENITOURINARY: Denies any burning micturition, frequency, or urgency. MUSCULOSKELETAL/RHEUMATOLOGICAL: Denies any joint pain, swelling, or any muscle pain. ENDOCRINE: Denies any polyuria or polydipsia. The rest of the 14-point review of systems is negative. PHYSICAL EXAMINATION: GENERAL: The patient is alert and oriented x3, not in any acute distress. Well developed, well nourished. HEENT: Pupils are round and equally reacting to light. EOMI. No scleral icterus. No conjunctival pallor. Normocephalic, atraumatic. No pharyngeal erythema. No thyromegaly. CARDIOVASCULAR: S1 and S2 present. No murmurs, rubs, or gallops. PULMONARY: Chest is clear to auscultation, no wheezing or crackles. ABDOMEN: Soft, nontender, nondistended, normoactive bowel sounds. No palpable organomegaly. MUSCULOSKELETAL: No joint swelling or deformity. EXTREMITIES: No cyanosis, clubbing, or pedal edema. Left arm is in a soft sling NEUROLOGICAL: Gross neurological examination did not reveal any focal deficits. SKIN: No rashes. Assessment and plan -Fall with trauma with fracture of the proximal left humerus mildly displaced patient continues on a soft sling and is scheduled to see orthopedics his hospital stay patient will also need to see physical therapy and likely will need subacute rehab placement on discharge as she lives alone and has been having difficulty taking care of herself since arm fracture. -Altered mental status possibly due to TIA, neurology following further recomm endations pending, patient has been placed on aspirin and statin therapy -Hx of asthma with no acute exacerbation -Anxiety/Depression maintained on celexa and wellbutrin which have been resumed -Gastroesophageal reflux maintained on lansoprazole resumed on PPI -Essential tremor maintained on primodine GI prophylaxis DVt porphylaxis The impression and plan of care has been dictated by Montserrat Jennings, Nurse Practitioner as directed. Dr. Nicolas MD I have performed a history and physical examination and medical decision making of this patient, discussed the same with the dictator, and agree with the dictators assessment and plan as written, documented as a scribe. Based on total visit time, I have performed more than 50% of this visit. Past Medical History Past Medical History: Asthma History of Any Multi-Drug Resistant Organisms: None Reported Past Surgical History: Hernia Repair, Hysterectomy Past Psychological History: Anxiety, Depression Smoking Status: Never smoker Past Alcohol Use History: None Reported Past Drug Use History: None Reported Medications and Allergies Home Medications Medication Instructions Recorded Confirmed Type Alendronate Sodium [Fosamax] 70 mg PO SA 09/15/23 09/15/23 History Citalopram Hydrobromide [CeleXA] 40 mg PO DAILY 09/15/23 09/15/23 History Clobetasol Propionate [Clobex 1 applic TOPICAL BID PRN 09/15/23 09/15/23 History 0.05% Soln] Fluticasone/Vilanterol [Breo 1 puff INHALATION RT-DAILY 09/15/23 09/15/23 History Ellipta 100-25 Mcg Inhalr] HYDROcodone/APAP 5-325MG [[place] 1 tab PO QID PRN 09/15/23 09/15/23 History 5-325] Ketoconazole 2% Shampoo [Nizoral] 1 applic TOPICAL Q3D PRN 09/15/23 09/15/23 History Lansoprazole [Prevacid] 30 mg PO BID 09/15/23 09/15/23 History Montelukast [Singulair] 10 mg PO HS 09/15/23 09/15/23 History Primidone [Mysoline] 50 mg PO DAILY 09/15/23 09/15/23 History Primidone [Mysoline] 100 mg PO HS 09/15/23 09/15/23 History buPROPion XL [Wellbutrin XL] 150 mg PO DAILY 09/15/23 09/15/23 History Allergies Allergy/AdvReac Type Severity Reaction Status Date / Time No Known Allergies Allergy Verified 09/15/23 17:55 Physical Exam Vitals: Vital Signs Temp Pulse Resp BP Pulse Ox 09/16/23 13:00 61 18 125/77 96 09/16/23 10:50 82 18 156/80 98 09/16/23 08:20 78 18 140/83 97 09/16/23 04:00 80 18 132/81 95 09/16/23 00:00 80 18 154/95 96 09/15/23 20:00 84 18 153/91 99 09/15/23 18:48 98.3 F 81 14 157/87 97 09/15/23 17:16 87 14 140/84 97 09/15/23 15:55 99.1 F 85 20 177/100 100 Intake and Output 09/15/23 09/16/23 09/16/23 22:59 06:59 14:59 Other: Weight 49.442 kg Results CBC & Chem 7: 09/15/23 16:44 09/15/23 16:44 Labs: Abnormal Lab Results - Last 24 Hours (Table) 09/15/23 09/15/23 09/15/23 Range/Units 16:44 16:44 16:44 Neutrophils # 8.2 H (1.3-7.7) k/uL PT 9.8 L (10.0-12.5) sec Glucose 102 H (74-99) mg/dL AST 45 H (14-36) U/L HDL Cholesterol (40.00-60.00) mg/dL 09/15/23 Range/Units 16:44 Neutrophils # (1.3-7.7) k/uL PT (10.0-12.5) sec Glucose (74-99) mg/dL AST (14-36) U/L HDL Cholesterol 75.70 H (40.00-60.00) mg/dL Assessment and Plan Time with Patient: Less than 30
[2023-09-16] MEDS: ASPIRIN 81 MG PO SCH (17:36)
[2023-09-16] MEDS: HEPARIN SODIUM,PORCINE 5,000 UNIT/ML 1 ML VIAL SQ SCH (20:49)
--- NOTE | 2023-09-17 11:30 | P.CNNES ---
History of Present Illness Consult date: 09/16/23 Requesting physician: Hazel Benson Reason for Consult: acute encephalopathy, possible tia History of Present Illness: Patient is a 78-year-old female came to the hospital by ambulance yesterday at 3:49 PM for episode of loss of memory. Patient tells me that she had an appointment with Dr. Duarte yesterday at 2:20 PM. Patient had suffered from a fall past Tuesday on 09/10/2023 when she was standing on the stepstool, lost balance, fell and fractured her left humerus. She did not feel dizzy, did not pass out as she remembers the fall. She got up, and arm was hurting so bad, that she called 911. She was brought to the hospital, diagnosed with acute fracture of the left proximal humerus with mild displacement and posterior angulation, recommended to follow-up with the primary physician for orthopedic consultation outpatient, which was set for today at 1 PM, but she is in the hospital now. Patient continued to be in severe pain, therefore she made an appointment with Dr. Duarte. Patient states that she was under stress because it was having difficulty getting dressed because of the fractured left arm. She was in a lot of pain. She was late for the appointment which she never does. By the time she arrived there, she was in "tears". She remembers going into the examination, and started to speak to the doctor, telling him "did not they tell you of my fall". Then she does not remember what happened until she remembers EMS people around, and taking her to the ambulance. She remembers ride and stay in the ER. Patient states that she was told that the doctor came in and out several times and she was being escorted out and she did not remember, therefore they called the ambulance. Patient does not remember these later details. She did not remember at that time while she was there. There was no slurred speech facial droop or any other strokelike symptoms reported. Patient states that all this time she was able to walk fine without any problem. Patient believes that overall this loss of memory was for about 30 to 45 minutes. As per EMS flowsheet, patient was at PCP office when patient developed altered mental status. Patient had office visit due to recent fall with injuries. Post appointment, patient was being escorted to her vehicle but patient was unable to remember it on located. Patient also did not remember having PCP appointment. Patient was found with staff very anxious and scared. Patient at that time was alert and oriented x 4 answering all questions correctly. There was no pain or difficulty breathing except for left shoulder pain from recent fracture. Patient's blood glucose was 111. Blood pressure 156/95 pulse rate 87, respiration 18. Vital signs on arrival blood pressure 177/100, which came down to 140/84, temperature 99.1. Blood test shows normal CBC PT PTT, normal CMP with mildly elevated AST 45. Troponin negative. Chest x-ray, EKG and CT head are normal. I personally reviewed CT head, agree with the findings. On my review, there is very mild prominence of the ventricles, slightly more than the amount of cortical atrophy. Paranasal sinuses are clear. Her x-ray of the left humerus showed acute fracture of the left proximal humerus with mild displacement and posterior angulation. Remote injury to the distal radius likely sequela of prior fracture seen on 01/13/2021. No new fractures identified. Patient denies any tobacco or alcohol use. She denies hypertension or diabetes. No previous history of seizures. She has been on Wellbutrin for last 15 years. Patient does not take any antiplatelet medication at home. Review of Systems Constitutional: Denies chills, Denies fever Eyes: denies blurred vision, denies diplopia, denies pain, denies loss of vision Ears: bilateral: decreased hearing (Aids), deny: ear discharge Ears, nose, mouth and throat: Reports headache, Denies sore throat, Denies vertigo Cardiovascular: Reports lightheadedness (sometimes), Denies chest pain, Denies shortness of breath Respiratory: Denies cough, Denies excessive sputum Gastrointestinal: Denies abdominal pain, Denies diarrhea, Denies nausea, Denies vomiting Genitourinary: Denies dysuria, Denies hematuria, Denies stress incontinence Musculoskeletal: Reports low back pain, Denies neck pain Integumentary: Denies pruritus, Denies rash Neurological: Reports as per HPI Psychiatric: Reports anxiety, Reports depression Hematologic/Lymphatic: Reports easy bruising, Denies easy bleeding Past Medical History Past Medical History: Asthma History of Any Multi-Drug Resistant Organisms: None Reported Past Surgical History: Hernia Repair, Hysterectomy Past Psychological History: Anxiety, Depression Smoking Status: Never smoker Past Alcohol Use History: None Reported Past Drug Use History: None Reported Medications and Allergies Home Medications Medication Instructions Recorded Confirmed Type Alendronate Sodium [Fosamax] 70 mg PO SA 09/15/23 09/15/23 History Citalopram Hydrobromide [CeleXA] 40 mg PO DAILY 09/15/23 09/15/23 History Clobetasol Propionate [Clobex 1 applic TOPICAL BID PRN 09/15/23 09/15/23 History 0.05% Soln] Fluticasone/Vilanterol [Breo 1 puff INHALATION RT-DAILY 09/15/23 09/15/23 History Ellipta 100-25 Mcg Inhalr] HYDROcodone/APAP 5-325MG [[place] 1 tab PO QID PRN 09/15/23 09/15/23 History 5-325] Ketoconazole 2% Shampoo [Nizoral] 1 applic TOPICAL Q3D PRN 09/15/23 09/15/23 History Lansoprazole [Prevacid] 30 mg PO BID 09/15/23 09/15/23 History Montelukast [Singulair] 10 mg PO HS 09/15/23 09/15/23 History Primidone [Mysoline] 50 mg PO DAILY 09/15/23 09/15/23 History Primidone [Mysoline] 100 mg PO HS 09/15/23 09/15/23 History buPROPion XL [Wellbutrin XL] 150 mg PO DAILY 09/15/23 09/15/23 History Allergies Allergy/AdvReac Type Severity Reaction Status Date / Time No Known Allergies Allergy Verified 09/15/23 17:55 Physical Examination - Vital Signs Vital Signs: Vital Signs Temp Pulse Resp BP Pulse Ox 09/16/23 14:29 80 18 95 09/16/23 13:00 61 18 125/77 96 09/16/23 10:50 82 18 156/80 98 09/16/23 08:20 78 18 140/83 97 09/16/23 04:00 80 18 132/81 95 09/16/23 00:00 80 18 154/95 96 09/15/23 20:00 84 18 153/91 99 09/15/23 18:48 98.3 F 81 14 157/87 97 Patient is an elderly female, very pleasant, in no acute distress. Patient is alert awake oriented to time place and person. Speech and language functions are normal. Patient can name and repeat very well. No aphasia or dysarthria. Attention, concentration and fund of knowledge is adequate. On cranial nerve examination, pupils are equal, round and reacting to light, visual [place] are full on confrontation, with no neglect on double simultaneous stimulation. Extraocular muscles are intact with no nystagmus. Face is symmetric, tongue protrudes to the midline. Palatal elevation and sensation no rmal, hearing is decreased for finger rubbing, but normal for usual conversation. She does use hearing aids and shoulder shrug normal, facial sensation normal. Patient has some blue rosetta on the right lateral edge of the tongue. Uncertain if she bit her tongue but she does not remember and nothing is sore. On muscle strength testing, there is no pronator drift on the right side. The left arm is in a sling from recent shoulder fracture. Her strength is normal in the right arm and both director of manufacturing operations. The strength is normal in the lower limbs distally and proximally. Deep tendon reflexes are symmetric 1 in the upper limbs and 2 in the lower limbs and plantars downgoing. Sensory to touch is equal with no neglect on double simultaneous stimulation. Cerebellar function showed no ataxia for [id number] testing on the right, cannot perform on the left. No dysdiadochokinesia. No ataxia for [id number] testing on either side. Tone and bulk of muscles normal. Gait deferred.. On general examination, there is no carotid bruit or murmur, S1-S2 audible. Chest is clear on consultation. Abdomen is soft nontender. No organomegaly, bowel sounds present. Peripheral pulses are present. No peripheral edema. Results - Laboratory Findings CBC and BMP: 09/15/23 16:44 09/15/23 16:44 Abnormal Lab Findings: Abnormal Labs 09/15/23 09/15/23 09/15/23 16:44 16:44 16:44 Neutrophils # 8.2 H PT 9.8 L Glucose 102 H AST 45 H HDL Cholesterol 09/15/23 16:44 Neutrophils # PT Glucose AST HDL Cholesterol 75.70 H Assessment and Plan Assessment: * Possible transient global amnesia. * Status postacute fracture of the left proximal humerus 09/10/2023 due to a an accidental fall from a stepstool. Plan: * Patient had a possible transient global amnesia. Needs TIA workup. * CTA of head and neck revealed no significant abnormality. * Check 2D echo rule out any embolic source * EEG rule out any epileptiform activity. * B12, folate. * Telemetry monitoring. * Neurology will follow. Thank you for the consult.
[2023-09-17] MEDS: ACETAMINOPHEN TAB 325 MG TAB PO PRN (11:57)
--- NOTE | 2023-09-17 13:19 | P.PN ---
Subjective Progress Note Date: 09/17/23 This is a pleasant 78-year-old female patient of Dr. Pearson who has a medical history of asthma, anxiety/depression. Patient does live at home by herself she is sustained a fall after tripping off of a stepstool on the and fell onto her left side patient did call EMS and was brought into the hospital for evaluation. She denies any loss of consciousness and did not hit her head at that time. Patient at that time was found to have an acute fracture of the left proximal humerus with mild displacement and posterior angulation. A remote injury to the distal radius likely sequela of prior fracture on January 13, 2021 with no new fractures identified. There is degenerative changes and deformity to the radius. Patient was placed in a soft sling and recommended to follow-up with orthopedics on discharge. Patient was sent home from the ER. Patient states that she was having difficulty getting an appointment and she drove herself to Dr. Duarte's office on Tuesday due to worsening pain and difficulty taking care of herself at home. There is reports that patient was quite confused at the office that she forgot where she parked her car she did not remember seeing Dr. Duarte although he was in and out of her room at least 3-4 times at the office. She was felt to have altered mentation and EMS was called to transport the patient to the hospital. She is admitted to see orthopedics for the left humerus fracture and also neurology consultation for the altered mentation. Patient is currently alert and oriented x 3 in the room. She reports that she would taking Tylenol with codeine for the few days after she initially came to the hospital but states that since then she has only been t aking Aleve twice a day and is currently rating her pain for her left arm about an 8 out of 10. She is having difficulty performing ADLs. Denies any chest pain or shortness of breath no nausea vomiting or diarrhea she has no focal neurological deficits no dizziness or lightheadedness is not having speech difficulties at this time. She feels that her confusion has completely resolved. Patient had a brain CT done and as well as a CT angiography with no acute findings. A chest x-ray was normal. EKG shows normal sinus rhythm heart rate of [address] or T wave abnormalities. Blood work is essentially unremarkable. 09/16. Patient seen and examined. Patient currently has a left arm sling. States left arm pain has improved. Denies any lightheadedness or dizziness. Vital signs stable REVIEW OF SYSTEMS: CONSTITUTIONAL: No fever, no malaise,. CARDIOVASCULAR: No chest pain, no palpitations, no syncope. PULMONARY: No shortness of breath, no cough, GASTROINTESTINAL: No diarrhea, no nausea, no vomiting, no abdominal pain. NEUROLOGICAL: No headaches, no weakness, PHYSICAL EXAMINATION: GENERAL: The patient is alert and oriented x3, not in any acute distress. Well developed, well nourished. HEENT: Pupils are round and equally reacting to light. EOMI. No scleral icterus. No conjunctival pallor. Normocephalic, atraumatic. No pharyngeal erythema. No thyromegaly. CARDIOVASCULAR: S1 and S2 present. No murmurs, rubs, or gallops. PULMONARY: Chest is clear to auscultation, no wheezing or crackles. ABDOMEN: Soft, nontender, nondistended, normoactive bowel sounds. No palpable organomegaly. MUSCULOSKELETAL: No joint swelling or deformity. Left arm sling seen EXTREMITIES: No cyanosis, clubbing, or pedal edema. NEUROLOGICAL: Gross neurological examination did not reveal any focal deficits. SKIN: No rashes. Assessment and plan -Fall with trauma with fracture of the proximal left humerus mildly displaced patient continues on a soft sling, orthopedic consulted. Continue pain management -Altered mental status possibly due to TIA, neurology following further recommendations pending, patient has been placed on aspirin and statin therapy -Hx of asthma with no acute exacerbation -Anxiety/Depression maintained on celexa and wellbutrin which have been resumed -Gastroesophageal reflux maintained on lansoprazole resumed on PPI -Essential tremor maintained on primodine Labs and medication were reviewed.. Continue same treatment. Continue with symptomatic treatment. Resume home medication. Monitor labs and vitals. DVT and GI prophylaxis. Further recommendations as per clinical course of the patient Dictation was produced using ff[employer] environment dictation software. please excuse any grammatical, word or spelling errors. Objective - Vital Signs Vital signs: Vital Signs Temp 98.2 F 09/17/23 09:25 Pulse 83 09/17/23 09:25 Resp 16 09/17/23 09:25 BP 141/83 09/17/23 09:25 Pulse Ox 97 09/17/23 09:27 FiO2 21 09/17/23 09:27 Intake & Output 09/16/23 09/17/23 09/17/23 18:59 06:59 18:59 Intake Total 118 Balance 118 Weight 49.442 kg 51.5 kg Intake: Oral 118 Other: Voiding Method Toilet # Voids 0 - Labs CBC & Chem 7: 09/15/23 16:44 09/15/23 16:44
--- NOTE | 2023-09-17 13:34 | XR ---
Left humerus. HISTORY: Pain following trauma. COMPARISON: None. TECHNIQUE: 2 views left humerus are obtained. FINDINGS: The osseous structures are osteopenic. There is a four-part displaced fracture involving the left humeral head and neck. The distal humerus is intact. IMPRESSION: Proximal left humeral fracture described above.
--- NOTE | 2023-09-18 02:20 | CA ---
Transthoracic Echo Report Name: Macrina Dickerson Age: 78 Gender: F : 1945 Exam Date: 09/17/2023 09:58 Exam Location: [facility] Ht (in): 64 Wt (lb): 109 Ordering Physician: Jean Escalante MD Attending/Referring Phys: Stamp Mounter Marilee Cordero RDCS Procedure CPT: Indications: TGA Cardiac Hx: Technical Quality: Contrast 1: Total Dose (mL): Contrast 2: Total Dose (mL): MEASUREMENTS (Male / Female) Normal Values 2D ECHO Aortic Root Diameter 2.6 cm DOPPLER AV Peak Velocity 123.6 cm/s AV Peak Gradient 6.1 mmHg AV Mean Velocity 87.5 cm/s AV Mean Gradient 3.4 mmHg AV Velocity Time Integral 24.6 cm LVOT Peak Velocity 128.6 cm/s LVOT Peak Gradient 6.6 mmHg LVOT Velocity Time Integral 22.7 cm Mitral E Point Velocity 74.8 cm/s Mitral A Point Velocity 85.6 cm/s Mitral E to A Ratio 0.9 MV Deceleration Time 169.4 ms PV Peak Velocity 61.9 cm/s PV Peak Gradient 1.5 mmHg FINDINGS Left Ventricle Normal Left ventricular size, wall thickness, systolic function with no obvious regional wall motion abnormalities. Left ventricular ejection fraction is estimated at 60-65 %. Right Ventricle Normal right ventricular size. Unable to estimate the right ventricular systolic pressure. Right Atrium Normal right atrial size. Left Atrium Normal left atrial size. Mitral Valve Trace mitral regurgitation. Aortic Valve No aortic regurgitation. Tricuspid Valve Trace tricuspid regurgitation. Pulmonic Valve Pulmonic valve not well visualized. Pericardium No pericardial effusion. Aorta Aortic root and proximal ascending aorta not well visualized. CONCLUSIONS Normal left ventricular ejection fraction 60-65% Trace mitral regurgitation No aortic regurgitation Normal RVSP No pericardial effusion Previewed by: Dr. Sanchez Sanchez DO (Electronically Signed) Final Date: 18 September 2023 02:19
[2023-09-18 09:29] LABS: HCT 43.6 % (34.0-46.0); HGB 13.8 gm/dL (11.4-16.0); MCHC 31.7 g/dL (31.0-37.0); MCV 94.5 fL (80.0-100.0); Mean Platelet Volume 7.7; Platelet Count 398 k/uL (150-450); RBC 4.61 m/uL (3.80-5.40); RDW 13.3 % (11.5-15.5); WBC 8.7 k/uL (3.8-10.6)
[2023-09-18 09:42] LABS: ALT 24 U/L (4-34); AST 26 U/L (14-36); African American GFR (CKD) 90 (>60 ml/min/1.73 sqM); Albumin 3.8 g/dL (3.5-5.0); Alkaline Phosphatase 90 U/L (38-126); Anion Gap 10 mmol/L; Blood Urea Nitrogen 17 mg/dL (7-17); Calcium 9.1 mg/dL (8.4-10.2); Carbon Dioxide 24 mmol/L (22-30); Chloride 104 mmol/L (98-107); Glucose 81 mg/dL (74-99); Non-African American GFR(CKD) 78 (>60 ml/min/1.73 sqM); Potassium 3.4 mmol/L (3.5-5.1); Sodium 138 mmol/L (137-145); Total Bilirubin 0.6 mg/dL (0.2-1.3); Total Protein 5.9 g/dL (6.3-8.2)
--- NOTE | 2023-09-18 12:23 | P.PN ---
Subjective Progress Note Date: 09/17/23 Patient was seen for a follow-up. Patient is laying comfortably in the bed. No further episodes of confusion. No focal symptoms. Objective - Vital Signs Vital signs: Vital Signs Temp 98.2 F 09/17/23 09:25 Pulse 82 09/17/23 15:43 Resp 16 09/17/23 15:43 BP 120/72 09/17/23 15:43 Pulse Ox 98 09/17/23 15:43 FiO2 21 09/17/23 09:27 Intake & Output 09/16/23 09/17/23 09/17/23 18:59 06:59 18:59 Intake Total 118 138 Balance 118 138 Weight 49.442 kg 51.5 kg Intake: IV 20 Invasive Line 1 20 Oral 118 118 Other: Voiding Method Toilet Toilet # Voids 0 2 - Exam Examination unchanged. - Labs CBC & Chem 7: 09/18/23 09:09 09/18/23 09:09 Assessment and Plan Assessment: * Possible transient global amnesia. * Status postacute fracture of the left proximal humerus 09/10/2023 due to a an accidental fall from a stepstool. Plan: * Patient had a possible transient global amnesia. Needs TIA workup. * CTA of head and neck revealed no significant abnormality. * 2D echo revealed normal left ventricular size, wall thickness and EF of 60 to 65%. Trace MR. Left atrial size normal. No embolic source. * EEG rule out any epileptiform activity. * B12 435, folate 32.70. * Telemetry monitoring. * Dr. Timothy Wong will resume neurology service on Tuesday.
--- NOTE | 2023-09-18 13:39 | P.PN ---
Subjective Progress Note Date: 09/18/23 This is a pleasant 78-year-old female patient of Dr. Pearson who has a medical history of asthma, anxiety/depression. Patient does live at home by herself she is sustained a fall after tripping off of a stepstool on the and fell onto her left side patient did call EMS and was brought into the hospital for evaluation. She denies any loss of consciousness and did not hit her head at that time. Patient at that time was found to have an acute fracture of the left proximal humerus with mild displacement and posterior angulation. A remote injury to the distal radius likely sequela of prior fracture on January 13, 2021 with no new fractures identified. There is degenerative changes and deformity to the radius. Patient was placed in a soft sling and recommended to follow-up with orthopedics on discharge. Patient was sent home from the ER. Patient states that she was having difficulty getting an appointment and she drove herself to Dr. Duarte's office on Tuesday due to worsening pain and difficulty taking care of herself at home. There is reports that patient was quite confused at the office that she forgot where she parked her car she did not remember seeing Dr. Duarte although he was in and out of her room at least 3-4 times at the office. She was felt to have altered mentation and EMS was called to transport the patient to the hospital. She is admitted to see orthopedics for the left humerus fracture and also neurology consultation for the altered mentation. Patient is currently alert and oriented x 3 in the room. She reports that she would taking Tylenol with codeine for the few days after she initially came to the hospital but states that since then she has only been t aking Aleve twice a day and is currently rating her pain for her left arm about an 8 out of 10. She is having difficulty performing ADLs. Denies any chest pain or shortness of breath no nausea vomiting or diarrhea she has no focal neurological deficits no dizziness or lightheadedness is not having speech difficulties at this time. She feels that her confusion has completely resolved. Patient had a brain CT done and as well as a CT angiography with no acute findings. A chest x-ray was normal. EKG shows normal sinus rhythm heart rate of [address] or T wave abnormalities. Blood work is essentially unremarkable. 09/16. Patient seen and examined. Patient currently has a left arm sling. States left arm pain has improved. Denies any lightheadedness or dizziness. Vital signs stable 09/17. Patient seen and examined. Still complaining of left arm pain. Mental status is back to baseline. REVIEW OF SYSTEMS: CONSTITUTIONAL: No fever, no malaise,. CARDIOVASCULAR: No chest pain, no palpitations, no syncope. PULMONARY: No shortness of breath, no cough, GASTROINTESTINAL: No diarrhea, no nausea, no vomiting, no abdominal pain. NEUROLOGICAL: No headaches, no weakness, PHYSICAL EXAMINATION: GENERAL: The patient is alert and oriented x3, not in any acute distress. Well developed, well nourished. HEENT: Pupils are round and equally reacting to light. EOMI. No scleral icterus. No conjunctival pallor. Normocephalic, atraumatic. No pharyngeal erythema. No thyromegaly. CARDIOVASCULAR: S1 and S2 present. No murmurs, rubs, or gallops. PULMONARY: Chest is clear to auscultation, no wheezing or crackles. ABDOMEN: Soft, nontender, nondistended, normoactive bowel sounds. No palpable organomegaly. MUSCULOSKELETAL: No joint swelling or deformity. Left arm sling seen EXTREMITIES: No cyanosis, clubbing, or pedal edema. NEUROLOGICAL: Gross neurological examination did not reveal any focal deficits. SKIN: No rashes. Assessment and plan -Fall with trauma with fracture of the proximal left humerus mildly displaced patient continues on a soft sling, orthopedic consulted. Continue pain management -Altered mental status possibly due to TIA, neurology following ordered EEG, patient has been placed on aspirin and statin therapy -Hx of asthma with no acute exacerbation -Anxiety/Depression maintained on celexa and wellbutrin which have been resumed -Gastroesophageal reflux maintained on lansoprazole resumed on PPI -Essential tremor maintained on primodine Labs and medication were reviewed.. Continue same treatment. Continue with symptomatic treatment. Resume home medication. Monitor labs and vitals. DVT and GI prophylaxis. Further recommendations as per clinical course of the patient Dictation was produced using [employer] dictation software. please excuse any grammatical, word or spelling errors. Objective - Vital Signs Vital signs: Vital Signs Temp 97.8 F 09/18/23 08:47 Pulse 90 09/18/23 12:00 Resp 18 09/18/23 12:00 BP 135/61 09/18/23 12:00 Pulse Ox 97 09/18/23 12:00 FiO2 21 09/17/23 09:27 Intake & Output 09/17/23 09/18/23 09/18/23 18:59 06:59 18:59 Intake Total 496 250 370 Balance 496 250 370 Intake: IV 20 10 10 Invasive Line 1 20 10 10 Oral 476 240 360 Other: Voiding Method Toilet Toilet Toilet # Voids 2 1 2 - Labs CBC & Chem 7: 09/18/23 09:09 09/18/23 09:09 Labs: Abnormal Lab Results - Last 24 Hours (Table) 09/17/23 09/18/23 Range/Units 11:38 09:09 Potassium 3.4 L (3.5-5.1) mmol/L Total Protein 5.9 L (6.3-8.2) g/dL Folate 32.70 H (4.40-31.00) ng/mL
--- NOTE | 2023-09-18 14:51 | P.CNOR ---
History of Present Illness - [facility] Consult date: 09/18/23 Consult reason: fracture History of present illness: Patient is pleasant 78 yo female sen at bedside today in consultation for left proximal humerus fracture. She states that she suffered a fall about one week ago and landed on left shoulder. She was referred to our office for further eval and treatment last week. She had some confusion and was admitted for further workup. SHe has pain at left shoulder as expected. She denies numbness, elbow pain or other complaints Review of Systems All systems: negative Constitutional: Denies chills, Denies fever Eyes: denies blurred vision, denies pain Ears, nose, mouth and throat: Denies headache, Denies sore throat Cardiovascular: Denies chest pain, Denies shortness of breath Respiratory: Denies cough Gastrointestinal: Denies abdominal pain, Denies diarrhea, Denies nausea, Denies vomiting Genitourinary: Denies dysuria, Denies hematuria Musculoskeletal: Denies myalgias Integumentary: Denies pruritus, Denies rash Neurological: Denies numbness, Denies weakness Psychiatric: Denies anxiety, Denies depression Endocrine: Denies fatigue, Denies weight change Past Medical History Past Medical History: Asthma Additional Past Medical History / Comment(s): essential tremors, osteoporosis History of Any Multi-Drug Resistant Organisms: None Reported Past Surgical History: Hernia Repair, Hysterectomy Past Anesthesia/Blood Transfusion Reactions: No Reported Reaction Past Psychological History: Anxiety, Depression Smoking Status: Never smoker Past Alcohol Use History: None Reported Past Drug Use History: None Reported Medications and Allergies Home Medications Medication Instructions Recorded Confirmed Type Alendronate Sodium [Fosamax] 70 mg PO SA 09/15/23 09/15/23 History Citalopram Hydrobromide [CeleXA] 40 mg PO DAILY 09/15/23 09/15/23 History Clobetasol Propionate [Clobex 1 applic TOPICAL BID PRN 09/15/23 09/15/23 History 0.05% Soln] Fluticasone/Vilanterol [Breo 1 puff INHALATION RT-DAILY 09/15/23 09/15/23 Histor y Ellipta 100-25 Mcg Inhalr] HYDROcodone/APAP 5-325MG [[place] 1 tab PO QID PRN 09/15/23 09/15/23 History 5-325] Ketoconazole 2% Shampoo [Nizoral] 1 applic TOPICAL Q3D PRN 09/15/23 09/15/23 History Lansoprazole [Prevacid] 30 mg PO BID 09/15/23 09/15/23 History Montelukast [Singulair] 10 mg PO HS 09/15/23 09/15/23 History Primidone [Mysoline] 50 mg PO DAILY 09/15/23 09/15/23 History Primidone [Mysoline] 100 mg PO HS 09/15/23 09/15/23 History buPROPion XL [Wellbutrin XL] 150 mg PO DAILY 09/15/23 09/15/23 History Allergies Allergy/AdvReac Type Severity Reaction Status Date / Time No Known Allergies Allergy Verified 09/15/23 17:55 Physical Examination Inspection of left upper extremity shows no deformity. There is diffuse echymoses as expected. No erythema or wounds. ROM of shoulder not tested due to fracture. Painless ROM at elbow and wrist. NVI with motor and sensation. 2+ radial pulse present. Less than 2 sec cap refill present Results xrays of left humerus shows mild displaced proximal humerus fracture - Labs Labs: Abnormal Lab Results - Last 24 Hours (Table) 09/17/23 09/18/23 Range/Units 11:38 09:09 Potassium 3.4 L (3.5-5.1) mmol/L Total Protein 5.9 L (6.3-8.2) g/dL Folate 32.70 H (4.40-31.00) ng/mL H & H 09/15/23 09/18/23 Range/Units 16:44 09:09 Hgb 13.7 13.8 (11.4-16.0) gm/dL Hct 42.8 43.6 (34.0-46.0) % Coagulation 09/15/23 Range/Units 16:44 INR 0.9 (<1.2) Result Diagrams: 09/18/23 09:09 09/18/23 09:09 - Diagnostic results Shoulder x-ray: report reviewed, image reviewed Assessment and Plan (1) Fracture of humerus Narrative/Plan: No plans for immediate surgical intervention. She may use sling for comfort. I advised on restrictions. Continue pain management, ice and rest. F/U in office in one week. Thank you Current Visit: No Status: Acute Priority: Medium Code(s): S42.309A - UNSP FRACTURE OF SHAFT OF HUMERUS, UNSP ARM, INIT SNOMED Code(s): 96871516 Time with Patient: Less than 30
[2023-09-18 21:28] VITALS: RESP 16
--- NOTE | 2023-09-19 08:49 | P.DS ---
Providers Date of admission: 09/15/23 19:13 Attending physician: Octavio Duarte Consults: 09/15/23 19:12 Consult Physician Urgent Consulting Provider: Jean Escalante Consult Reason/Comments: acute encephalopathy, possible tia Do you want consulting provider notified?: Yes 09/17/23 12:05 Consult Physician Routine Consulting Provider: Carmen Hall Consult Reason/Comments: left humerus fracture Do you want consulting provider notified?: Yes Primary care physician: Octavio Duarte - Discharge Diagnosis(es) (1) History of recent fall Current Visit: Yes Status: Acute (2) Altered mental status Current Visit: Yes Status: Acute (3) History of asthma Current Visit: Yes Status: Acute (4) GERD (gastroesophageal reflux disease) Current Visit: Yes Status: Acute (5) Fracture of humerus Current Visit: No Status: Acute Priority: Medium Hospital Course: This is a 78-year-old female with a recent fall and fracture of the left humerus. She lives alone. She was in our office last week for a follow-up on previous fall and was very confused. She was sent to the emergency room for evaluation. Neurology workup has been normal so far, awaiting results of EEG. She was seen and evaluated by orthopedics who are recommending a sling and follow-up in their office in 1 week. Patient is now back to baseline and alert and oriented. Will plan on sending home patient today if okay with neurology. Patient seen and evaluated by nurse practitioner, physician in agreement with plan Patient Condition at Discharge: Stable Plan - Discharge Summary Discharge Rx Participant: No New Discharge Prescriptions: Continue Montelukast [Singulair] 10 mg PO HS Lansoprazole [Prevacid] 30 mg PO BID Citalopram Hydrobromide [CeleXA] 40 mg PO DAILY HYDROcodone/APAP 5-325MG [[place] 5-325] 1 tab PO QID PRN PRN Reason: Pain Alendronate Sodium [Fosamax] 70 mg PO SA Primidone [Mysoline] 50 mg PO DAILY Primidone [Mysoline] 100 mg PO HS Ketoconazole 2% Shampoo [Nizoral] 1 applic TOPICAL Q3D PRN PRN Reason: Itching buPROPion XL [Wellbutrin XL] 150 mg PO DAILY Fluticasone/Vilanterol [Breo Ellipta 100-25 Mcg Inhalr] 1 puff INHALATION RT- DAILY Clobetasol Propionate [Clobex 0.05% Soln] 1 applic TOPICAL BID PRN PRN Reason: Itching Discharge Medication List Alendronate Sodium [Fosamax] 70 mg PO SA 09/15/23 [History] Citalopram Hydrobromide [CeleXA] 40 mg PO DAILY 09/15/23 [History] Clobetasol Propionate [Clobex 0.05% Soln] 1 applic TOPICAL BID PRN 09/15/23 [History] Fluticasone/Vilanterol [Breo Ellipta 100-25 Mcg Inhalr] 1 puff INHALATION RT- DAILY 09/15/23 [History] HYDROcodone/APAP 5-325MG [[place] 5-325] 1 tab PO QID PRN 09/15/23 [History] Ketoconazole 2% Shampoo [Nizoral] 1 applic TOPICAL Q3D PRN 09/15/23 [History] Lansoprazole [Prevacid] 30 mg PO BID 09/15/23 [History] Montelukast [Singulair] 10 mg PO HS 09/15/23 [History] Primidone [Mysoline] 50 mg PO DAILY 09/15/23 [History] Primidone [Mysoline] 100 mg PO HS 09/15/23 [History] buPROPion XL [Wellbutrin XL] 150 mg PO DAILY 09/15/23 [History] Follow up Appointment(s)/Referral(s): Slava Valencia PAC [PHYSICIAN ATTENDANCE CLERK] - 1 Week Octavio Duarte MD [Primary Care Provider] - 3 Days Activity/Diet/Wound Care/Special Instructions: sling prn for comfort non weightbearing left upper extremity ice to left shoulder prn f/u in office in one week Discharge Disposition: HOME SELF-CARE
[2023-09-19 13:57] VITALS: BP 142/76; PULSE 85; TEMP 98.6
--- NOTE | 2023-09-19 22:18 | EEG ---
ELECTROENCEPHALOGRAM REPORT CLINICAL HISTORY: This is a 78-year-old woman with transient global amnesia. The video EEG is obtained to evaluate for seizure epileptiform activity. RELEVANT MEDICATION: The patient is on Proventil. EEG TYPE: This is a routine 21-channel EEG with video using the 10/20 electrode placement system. DESCRIPTION: Wakefulness is only obtained. During awake state, the posterior-dominant rhythm consists of [id number] voltage of 9.5 to 10.5 hertz activity that is well modulated, well sustained. There is no physiological stage 2 sleep architecture. There is no focal slowing. Interictal and ictal is none. ACTIVATION PROCEDURE: Photic stimulation did not evoke a posterior driving response. There is no abnormality during the photic stimulation. Hyperventilation is not performed. CLINICAL INTERPRETATION: This is a normal routine EEG. There is no focal slowing, epileptiform discharges, or seizure on the EEG. A normal routine EEG does not rule out underlying epilepsy. Clinical correlation is recommended. ARTHUR / ABHINAV: [id number] / MTDD
== END 2023-09-19 14:26 | disposition home or self-care (01) ==
LOC: EC 15:49 → 3SCARD 19:13
PROVIDERS: ADMIT Family Medicine; ATTEND Family Medicine
DX: R41.82 Altered mental status, unspecified (principal); S42.202A Unspecified fracture of upper end of left humerus, initial encounter for closed fracture; F32.A Depression, unspecified; F41.9 Anxiety disorder, unspecified; J45.909 Unspecified asthma, uncomplicated; K21.9 Gastro-esophageal reflux disease without esophagitis; G25.0 Essential tremor; Z79.83 Long term (current) use of bisphosphonates; Z79.899 Other long term (current) drug therapy; W10.8XXA Fall (on) (from) other stairs and steps, initial encounter
CPT/HCPCS: 96376 ×2; 96372 ×4; 96374; 99285; 36415; 94640 ×5; 94760; 95816; 93005; 93306; 97161; 92610; 92523; 80061; 80053 ×2; 82607; 82550; 82746; 84484; 85025; 85027; 85610; 85730; 73060; 71045; 70496; 70450; 70498; G0378 ×5; J1644 ×4; J1885 ×2; Q9967